=== PATIENT | female | born 2000 | race African-American/Black ===

== ENCOUNTER 2020-12-11 12:08 | Emergency (ER) | payer OTHER ==
[2020-12-11] MEDS ORDERED: Sodium Chloride 0.9% 2.5 ML Syringe FLUSH PRN (12:28)
[2020-12-11] MEDS ORDERED: Sodium Chloride 0.9% 1,000 ML IV ONE (12:28)
[2020-12-11] MEDS ORDERED: Sodium Chloride 0.9% 10 ML Syringe FLUSH PRN (12:28)
--- NOTE | 2020-12-11 12:35 | EDM.PDOC ---
ED HPI GENERAL MEDICAL PROBLEM - General Chief Complaint: Chest Pain Stated Complaint: POSSIBLE HEART ISSUE, BUMP ON HEAD Time Seen by Provider: 12/11/20 12:12 - History of Present Illness INITIAL COMMENTS - FREE TEXT/NARRATIVE: 20yoF with minimal past hx presenting with chest pain, palpitations, left arm numbness and an uncomfortable bump on her head. Pt lost her baby in August 2020 and has been struggling with that. Pt also has a prior h/o depression. Pt's PCP started her on Wellbutrin 5 days ago. She started to develop chest pain and palpitations and saw that this was a potential side effect. She stopped taking the Wellbutrin after 4 days. She had a mild headache last night on the left side and woke up today with discomfort and paraesthesias down her left face and into her left arm. No weakness, no SOB, no abd pain or emesis. Pt is also currently on metronidazole for BV. Pt vapes but no other drugs or etOH. No LE pain or swelling. Sx w/out clear exacerbating or alleviating factors, radiation or other associated sx. chest Pain Score (Numeric/FACES): 6 - Related Data Allergies Allergy/AdvReac Type Severity Reaction Status Date / Time No Known Allergies Allergy Verified 12/11/20 13:26 Home Meds: Home Meds . [No Known Home Meds] 12/11/20 [History] ED ROS GENERAL - Review of Systems Review Of Systems: See Below Free Text/Narrative/Comment: General: No fever. Skin: No rash. Eyes: No vision problems. ENT: No sore throat. Neck: Per HPI Respiratory: No shortness of breath. Cardiac: Per HPI Gastrointestinal: No nausea, vomiting or abdominal pain. Urinary: No dysuria. Musculoskeletal: No myalgias/arthralgias. Neurologic: Per HPI ED EXAM, GENERAL - Physical Exam Exam: See Below Free Text/Narrative:: General Appearance: No acute distress, appears comfortable Skin: No rash HEENT: atraumatic, 7mm minimally tender nodule in the left anterior parietal scalp consistent with cutaneous cyst, no swelling, fluctuance or ecchymosis, sclera anicteric, mucous membranes moist Neck: Normal range of motion Chest and Lungs: Bilateral breath sounds, clear to auscultation Cardiovascular: Tachycardic rate at 120 on the monitor during my interview regular rhythm, no murmur Abdomen: Soft, non-tender Back: Normal Musculoskeletal: No edema, left trapezius with tenderness and palpable spasm Neurologic: Cranial nerves II through XI intact bilaterally 5 out of 5 strength bilateral upper and 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 Diminished sensation over the left lateral arm primarily down to the pinky. Psychiatric: Appropriate, cooperative #1 Interpretation EKG Date: 12/11/20 Time: 12:30 EKG Interpretation Comments: Normal sinus rhythm rate of 83 normal axis and intervals no acute ischemia normal EKG Course - Vital Signs Last Recorded V/S: Last Vital Signs Temp 96.2 F L 12/11/20 12:12 Pulse 85 12/11/20 13:21 Resp 16 12/11/20 13:21 BP 123/67 12/11/20 13:21 Pulse Ox 95 12/11/20 13:21 - Orders/Labs/Meds Orders: Active Orders 24 hr Category Date Time Status EKG 12 Lead [EKG Documentation Completion] [RC] STAT Care 12/11/20 12:32 Active Sodium Chloride 0.9% [Saline Flush] Med 12/11/20 12:28 Active 10 ml FLUSH ASDIRECTED PRN Sodium Chloride 0.9% [Saline Flush] Med 12/11/20 12:28 Active 2.5 ml FLUSH ASDIRECTED PRN Saline Lock Insert [OM.PC] Stat Oth 12/11/20 12:28 Ordered Medication Orders Sodium Chloride (Sodium Chloride 0.9% 10 Ml Syringe) 10 ml FLUSH ASDIRECTED PRN PRN Reason: Keep Vein Open Last Admin: 12/11/20 12:49 Dose: 10 ml Documented by: TAM Sodium Chloride (Sodium Chloride 0.9% 2.5 Ml Syringe) 2.5 ml FLUSH ASDIRECTED PRN PRN Reason: Keep Vein Open Last Admin: 12/11/20 12:49 Dose: 2.5 ml Documented by: TAM Labs: Laboratory Tests 12/11/20 12/11/20 12/11/20 Range/Units 12:25 12:25 12:25 WBC 11.15 H (4.0-11.0) K/uL RBC 4.89 (4.30-5.90) M/uL Hgb 11.5 L (12.0-16.0) g/dL Hct 37.5 (36.0-46.0) % MCV 76.7 L (80.0-98.0) fL MCH 23.5 L (27.0-32.0) pg MCHC 30.7 L (31.0-37.0) g/dL RDW Std Deviation 47.8 (28.0-62.0) fl RDW Coeff of Amy 17 H (11.0-15.0) % Plt Count 310 (150-400) K/uL MPV 11.00 (7.40-12.00) fL Neut % (Auto) 53.9 (48.0-80.0) % Lymph % (Auto) 37.7 (16.0-40.0) % [place] % (Auto) 6.5 (0.0-15.0) % Eos % (Auto) 1.6 (0.0-7.0) % Baso % (Auto) 0.3 (0.0-1.5) % Neut # (Auto) 6.0 H (1.4-5.7) K/uL Lymph # (Auto) 4.2 H (0.6-2.4) K/uL [place] # (Auto) 0.7 (0.0-0.8) K/uL Eos # (Auto) 0.2 (0.0-0.7) K/uL Baso # (Auto) 0.0 (0.0-0.1) K/uL Nucleated RBC % 0.0 /100WBC Nucleated RBCs # 0 K/uL D-Dimer, Quantitative < 0.19 (0.0-0.50) mg/L FEU Sodium 140 (136-145) mmol/L Potassium 4.1 (3.5-5.1) mmol/L Chloride 103 (98-107) mmol/L Carbon Dioxide 27.3 (21.0-32.0) mmol/L BUN 7 (7.0-18.0) mg/dL Creatinine 0.9 (0.6-1.0) mg/dL Est Cr Clr Drug Dosing TNP Estimated GFR (MDRD) > 60.0 ml/min Glucose 106 (74-106) mg/dL Calcium 8.9 (8.5-10.1) mg/dL Total Bilirubin 0.3 (0.2-1.0) mg/dL AST 13 L (15-37) IU/L ALT 15 (14-63) IU/L Alkaline Phosphatase 81 (46-116) U/L Troponin I < 0.050 (0.000-0.056) ng/mL Total Protein 8.1 (6.4-8.2) g/dL Albumin 4.0 (3.4-5.0) g/dL Globulin 4.1 H (2.6-4.0) g/dL Albumin/Globulin Ratio 1.0 (0.9-1.6) HCG, Qual (NEG) 12/11/20 Range/Units 12:25 WBC (4.0-11.0) K/uL RBC (4.30-5.90) M/uL Hgb (12.0-16.0) g/dL Hct (36.0-46.0) % MCV (80.0-98.0) fL MCH (27.0-32.0) pg MCHC (31.0-37.0) g/dL RDW Std Deviation (28.0-62.0) fl RDW Coeff of Amy (11.0-15.0) % Plt Count (150-400) K/uL MPV (7.40-12.00) fL Neut % (Auto) (48.0-80.0) % Lymph % (Auto) (16.0-40.0) % [place] % (Auto) (0.0-15.0) % Eos % (Auto) (0.0-7.0) % Baso % (Auto) (0.0-1.5) % Neut # (Auto) (1.4-5.7) K/uL Lymph # (Auto) (0.6-2.4) K/uL [place] # (Auto) (0.0-0.8) K/uL Eos # (Auto) (0.0-0.7) K/uL Baso # (Auto) (0.0-0.1) K/uL Nucleated RBC % /100WBC Nucleated RBCs # K/uL D-Dimer, Quantitative (0.0-0.50) mg/L FEU Sodium (136-145) mmol/L Potassium (3.5-5.1) mmol/L Chloride (98-107) mmol/L Carbon Dioxide (21.0-32.0) mmol/L BUN (7.0-18.0) mg/dL Creatinine (0.6-1.0) mg/dL Est Cr Clr Drug Dosing Estimated GFR (MDRD) ml/min Glucose (74-106) mg/dL Calcium (8.5-10.1) mg/dL Total Bilirubin (0.2-1.0) mg/dL AST (15-37) IU/L ALT (14-63) IU/L Alkaline Phosphatase (46-116) U/L Troponin I (0.000-0.056) ng/mL Total Protein (6.4-8.2) g/dL Albumin (3.4-5.0) g/dL Globulin (2.6-4.0) g/dL Albumin/Globulin Ratio (0.9-1.6) HCG, Qual NEGATIVE (NEG) Meds: Medications Generic Name Dose Route Start Last Admin Trade Name Freq PRN Reason Stop Dose Admin Sodium Chloride 10 ml 12/11/20 12:28 12/11/20 12:49 Sodium Chloride 0.9% 10 Ml Syringe FLUSH 10 ml ASDIRECTED PRN Administration Keep Vein Open Sodium Chloride 2.5 ml 12/11/20 12:28 12/11/20 12:49 Sodium Chloride 0.9% 2.5 Ml Syringe FLUSH 2.5 ml ASDIRECTED PRN Administration Keep Vein Open Discontinued Medications Generic Name Dose Route Start Last Admin Trade Name Freq PRN Reason Stop Dose Admin Diazepam 5 mg 12/11/20 12:28 12/11/20 12:50 Diazepam 10 Mg/2 Ml Syringe IVPUSH 12/11/20 12:29 Not Given ONETIME ONE Sodium Chloride 1,000 mls @ 999 mls/hr 12/11/20 12:28 12/11/20 12:49 Normal Saline IV 12/11/20 13:28 999 mls/hr .Bolus ONE Administration Departure - Departure Time of Disposition: 13:46 Disposition: Home, Self-Care 01 Condition: Good Clinical Impression: Panic attack - Discharge Information *PRESCRIPTION DRUG MONITORING PROGRAM REVIEWED*: Not Applicable *COPY OF PRESCRIPTION DRUG MONITORING REPORT IN PATIENT [place]: Not Applicable Instructions: Panic Attack Forms: ED Department Discharge Additional Instructions: I do think your symptoms today likely represent an episode of a panic attack. However, as we discussed I do not believe that this necessarily means that you have panic disorder. It is more likely that your brain is still adjusting to the days that you are on Wellbutrin. I encourage you to do which you can to avoid stressful situations and try and take it easy for the next couple days. The effects of the Wellbutrin should completely wear off over the next couple days. I encourage you to continue to follow closely with your primary care doctor. The following information is given to patients seen in the emergency department who are being discharged to home. This information is to outline your options for follow-up care. We provide all patients seen in our emergency department with a follow-up referral. The need for follow-up, as well as the timing and circumstances, are variable depending upon the specifics of your emergency department visit. If you don't have a primary care physician on staff, we will provide you with a referral. We always advise you to contact your personal physician following an emergency department visit to inform them of the circumstance of the visit and for follow-up with them and/or the need for any referrals to a consulting spec ialist. The emergency department will also refer you to a specialist when appropriate. This referral assures that you have the opportunity for follow-up care with a specialist. All of these measure are taken in an effort to provide you with optimal care, which includes your follow-up. Under all circumstances we always encourage you to contact your private physician who remains a resource for coordinating your care. When calling for follow-up care, please make the office aware that this follow-up is from your recent emergency room visit. If for any reason you are refused follow-up, please contact the [facility] Emergency Department at and asked to speak to the emergency department charge nurse. Sepsis Event Note (ED) - Focused Exam Vital Signs: Vital Signs Temp Pulse Resp BP BP Pulse Ox 12/11/20 13:21 85 16 123/67 95 12/11/20 12:12 96.2 F L 112 H 17 136/71 98 - My Orders Last 24 Hours: My Active Orders 12/11/20 12:28 Sodium Chloride 0.9% [Saline Flush] 10 ml FLUSH ASDIRECTED PRN Sodium Chloride 0.9% [Saline Flush] 2.5 ml FLUSH ASDIRECTED PRN Saline Lock Insert [OM.PC] Stat 12/11/20 12:32 EKG 12 Lead [EKG Documentation Completion] [RC] STAT - Assessment/Plan Last 24 Hours: My Active Orders 12/11/20 12:28 Sodium Chloride 0.9% [Saline Flush] 10 ml FLUSH ASDIRECTED PRN Sodium Chloride 0.9% [Saline Flush] 2.5 ml FLUSH ASDIRECTED PRN Saline Lock Insert [OM.PC] Stat 12/11/20 12:32 EKG 12 Lead [EKG Documentation Completion] [RC] STAT Assessment:: 20-year-old female presenting with palpitations chest pain paresthesias. Certainly side effects of Wellbutrin or consideration anxiety certainly is a consideration. Possibility of stroke was considered but the patient is very low risk for this and quite young. Patient's numbness also seems to be confined to dermatome and is associated with palpable left trap spasm. PE considered but patient low risk for this given the tachycardia D-dimer will be sent. Chest x- ray as well EKG is without acute ischemia. Patient with a cutaneous cyst on the left upper scalp no signs of infection at this time. I do not see any evidence for acute intracranial process at this time no concern for subarachnoid hemorrhage nothing suggest intracranial mass. No indication for CT imaging at this time. Labs, Valium and will reassess. 1250: Pt refused the Valium stating "I just don't want it." 1345: On reassessment patient states that she is feeling much improved and her symptoms have essentially resolved. She now wonders if she was having a panic attack as she was having conversation with her when these symptoms started. We discussed that her symptoms in many ways are quite classic for a panic attack. However we also discussed that given the recent Wellbutrin I would not diagnose her with panic attacks or panic disorders at this time as it could still be her brain adjusting from the brief experience with Wellbutrin. I encourage her to continue follow-up closely with her primary care doctor.
--- NOTE | 2020-12-11 12:57 | CR ---
INDICATION: Chest pain. TECHNIQUE: Chest 1 view. COMPARISON: None FINDINGS: Cardiovascular and mediastinum: Heart size and vasculature are normal in caliber and appearance. Mediastinum is within normal limits. Lungs and pleural space: Lungs are clear. No sign of infiltrate or mass. No sign of pleural effusion. No pneumothorax. Bones and soft tissues: No significant findings. IMPRESSION: Unremarkable chest. Dictated by Jadiel Tolliver MD @ Dec 11 2020 12:54PM Signed by Dr. Jadiel Tolliver @ Dec 11 2020 12:54PM
[2020-12-11 12:58] LABS: BLOOD UREA NITROGEN,BUN 7 mg/dL (7.0-18.0); CARBON DIOXIDE,CO2 27.3 mmol/L (21.0-32.0); CHLORIDE,CL 103 mmol/L (98-107); GLUCOSE RANDOM 106 mg/dL (74-106); POTASSIUM,K 4.1 mmol/L (3.5-5.1); SODIUM,NA 140 mmol/L (136-145)
== END 2020-12-11 13:57 | disposition home or self-care (01) ==
LOC: MERGE 12:08 → EDBD 12:08 → MW.ED 12:08
DX: F41.0 Panic disorder [episodic paroxysmal anxiety] (principal); R22.0 Localized swelling, mass and lump, head
CPT/HCPCS: 36415; 71045; 80053; 84484; 84703; 85025; 85379; 93005; 99285; J7030; 93010; 99283

== ENCOUNTER 2023-06-08 15:22 | Emergency (ER) | payer MEDICAID ==
[2023-06-08 17:07] LABS: BASOPHILS PERCENT AUTO 0.2 % (0.0-1.5); EOSINOPHILS ABSOLUTE AUTO 0.3 K/uL (0.0-0.7); EOSINOPHILS PERCENT AUTO 2.1 % (0.0-7.0); HEMATOCRIT 40.4 % (36.0-46.0); HEMOGLOBIN 12.9 g/dL (12.0-16.0); MEAN CORPUSCULAR HEMOGLOBIN 26.3 pg (27.0-32.0); MEAN CORPUSCULAR HGB CONC 31.9 g/dL (31.0-37.0); MEAN CORPUSCULAR VOLUME 82.3 fL (80.0-98.0); MONOCYTES ABSOLUTE AUTO 0.8 K/uL (0.0-0.8); MONOCYTES PERCENT AUTO 6.7 % (0.0-15.0); NEUTROPHILS ABSOLUTE AUTO 7.9 K/uL (1.4-5.7); NRBC ABSOLUTE 0 K/uL; PLATELET COUNT,PLT 197 K/uL (150-400); RED BLOOD CELL COUNT 4.91 M/uL (4.30-5.90)
[2023-06-08 17:31] LABS: A/G RATIO 0.7 (0.9-1.6); ALANINE AMINOTRANSFERASE,ALT 13 IU/L (14-63); ALKALINE PHOSPHATASE 80 U/L (46-116); ASPARTATE AMNIOTRANSFERASE,AST 14 IU/L (15-37); BILIRUBIN TOTAL 0.4 mg/dL (0.2-1.0); BLOOD UREA NITROGEN,BUN 4 mg/dL (7.0-18.0); CALCIUM 8.6 mg/dL (8.5-10.1); CHLORIDE,CL 102 mmol/L (98-107); CREATININE 0.6 mg/dL (0.6-1.0); EST CRCL DRUG DOSING (CG) 168.28 mL/min; GLUCOSE RANDOM 76 mg/dL (74-106); PROTEIN TOTAL,TP 7.4 g/dL (6.4-8.2); SODIUM,NA 134 mmol/L (136-145); TSH ULTRASENSITIVE 0.95 uIU/mL (0.36-3.74)
[2023-06-08 17:32] LABS: ESTIMATED GFR 129 mL/min (>60)
== END 2023-06-08 18:21 | disposition home or self-care (01) ==
LOC: MW.ED 15:22
DX: R00.2 Palpitations (principal); Z20.822 Contact with and (suspected) exposure to COVID-19
CPT/HCPCS: 36415; 80053; 84443; 84484; 85025; 93005; 99285; U0002

== ENCOUNTER 2023-07-12 22:39 | Emergency (ER) | payer MEDICAID ==
[2023-07-12] MEDS ORDERED: Benzocaine 20% Topical Spray UD MUCMEM ONE (23:37)
[2023-07-12] MEDS ORDERED: Lidocaine 2% Viscous Solution 15 ML UD PO ONE (23:38)
== END 2023-07-13 00:24 | disposition home or self-care (01) ==
LOC: MW.ED 22:39
DX: K08.89 Other specified disorders of teeth and supporting structures (principal)
CPT/HCPCS: 99283; A9270

== ENCOUNTER 2023-08-25 05:00 | Inpatient (IN) | payer MEDICAID ==
[2023-08-25] MEDS ORDERED: Sodium Chloride 0.9% 2.5 ML Syringe FLUSH PRN (05:30)
[2023-08-25] MEDS ORDERED: Misoprostol 200 MCG Tab PO PRN (05:30)
[2023-08-25] MEDS ORDERED: Lidocaine 1% 50 ML MDV INJECT PRN (05:30)
[2023-08-25] MEDS ORDERED: Carboprost Tromethamine 250 MCG/1 mL Vial IM PRN (05:30)
[2023-08-25] MEDS ORDERED: Sodium Chloride 0.9% 10 ML Syringe FLUSH PRN (05:30)
[2023-08-25] MEDS ORDERED: Water For Irrigation,Sterile 1,000 ML Container IRR PRN (05:30)
[2023-08-25] MEDS ORDERED: Oxytocin/0.9 % Sodium Chloride 30 UNIT/500 ML BAG IV SCH ×2 (05:30→23:45)
[2023-08-25] MEDS ORDERED: Methylergonovine 0.2 MG/1 ML Amp IM PRN (05:30)
[2023-08-25] MEDS ORDERED: Sodium Chloride 0.9% 20 ML SDV IV PRN (05:30)
[2023-08-25] MEDS ORDERED: Tranexamic Acid IN NACL,ISO-OS 1,000 MG in Premix Bag 1 BAG IV PRN ×2 (05:30)
[2023-08-25 05:58] LABS: HEMATOCRIT 37.6 % (37.0-47.0); HEMOGLOBIN 12.5 g/dL (12.0-16.0); MEAN CORPUSCULAR HEMOGLOBIN 26.4 pg (28.0-32.0); MEAN CORPUSCULAR HGB CONC 33.2 g/dL (32.0-36.0); MEAN CORPUSCULAR VOLUME 79.3 fL (83.0-99.0); MEAN PLATELET VOLUME 12.1 fL (9.4-12.3); PLATELET COUNT,PLT 153 K/uL (150-400); RED BLOOD CELL COUNT 4.74 M/uL (4.10-5.30); WHITE BLOOD CELL COUNT,WBC 12.72 K/uL (3.9-11.3)
[2023-08-25 06:29] LABS: AMPHETAMINES SCREEN, URINE NEGATIVE (CUTOFF=500); BARBITURATE SCREEN,URINE NEGATIVE (CUTOFF=200); BENZODIAZEPINES SCREEN,URINE NEGATIVE (CUTOFF=150); BUPRENORPHINE SCREEN,URINE NEGATIVE (CUTOFF=10); METHADONE SCREEN, URINE NEGATIVE (CUTOFF=200); METHAMPHETAMINES SCREEN, URINE NEGATIVE (CUTOFF=500); OXYCODONE SCREEN,URINE NEGATIVE (CUT0FF=100); PCP SCREEN,URINE NEGATIVE (CUTOFF=25); THC SCREEN,URINE 20 NG/ML NEGATIVE (CUTOFF=50)
[2023-08-25] MEDS: Misoprostol 25 MCG (1/4 of 100 MCG) Tab VAG PRN ×2 (11:49→15:59)
[2023-08-25] MEDS ORDERED: Terbutaline 1 MG/ML SDV SUBCUT PRN (12:00)
[2023-08-25] MEDS: Lactated Ringers 1,000 ML IV SCH (23:05)
[2023-08-26] MEDS: Lactated Ringers 1,000 ML IV SCH (01:25)
[2023-08-26] MEDS ORDERED: Ketorolac 30 MG/ML SDV IVPUSH ONE (03:22)
[2023-08-26] MEDS ORDERED: Ketorolac 30 MG/ML SDV ONE (03:24)
[2023-08-26] MEDS ORDERED: Nalbuphine 10 MG/0.5 ML Syringe ONE (03:48)
[2023-08-26] MEDS ORDERED: Nalbuphine 10 MG/0.5 ML Syringe IVPUSH ONE (03:50)
[2023-08-26] MEDS ORDERED: Tranexamic Acid IN NACL,ISO-OS 1,000 MG in Premix Bag 1 BAG IV PRN ×2 (04:17)
[2023-08-26] MEDS ORDERED: Bisacodyl 10 MG Supp RECTAL PRN (04:17)
[2023-08-26] MEDS ORDERED: Methylergonovine 0.2 MG/1 ML Amp IM PRN (04:17)
[2023-08-26] MEDS ORDERED: Witch Hazel Medicated Pads 40/Jar TOP PRN (04:17)
[2023-08-26] MEDS ORDERED: Docusate Sodium 100 MG Cap PO PRN (04:17)
[2023-08-26] MEDS ORDERED: Benzocaine/Menthol 20%-0.5% Spray 78 GM Cannister TOP PRN (04:17)
[2023-08-26] MEDS ORDERED: Lanolin 100% Cream 7 GM Tube TOP PRN (04:17)
[2023-08-26 04:24] LABS: PH,UMBILICAL ARTERIAL 7.287 (7.18-7.38); PH,UMBILICAL VENOUS 7.363 (7.25-7.45)
[2023-08-26] MEDS: Acetaminophen 500 MG Tab PO PRN (09:34)
[2023-08-26] MEDS: Ibuprofen 800 MG Tab PO PRN (20:29)
[2023-08-27] MEDS: Acetaminophen 500 MG Tab PO PRN (00:04)
[2023-08-27] MEDS: Ibuprofen 800 MG Tab PO PRN ×2 (02:44→12:30)
[2023-08-27 06:07] LABS: HEMATOCRIT 27.4 % (37.0-47.0); HEMOGLOBIN 8.9 g/dL (12.0-16.0)
== END 2023-08-27 14:45 | disposition home or self-care (01) | DRG 807 ==
LOC: MW.OBCHECK 05:00 → MW.OB 05:01 → MW.OBCHECK 05:30 → OBSVTOIN 08-26 02:56 → MW.OB 08-26 08:48
PROVIDERS: ADMIT Obstetrics & Gynecology; ATTEND Obstetrics & Gynecology Obstetrics
PROC: 10E0XZZ Delivery of Products of Conception, External Approach (ICD-10-PCS; principal; 2023-08-26)
PROC: 10907ZC Drainage of Amniotic Fluid, Therapeutic from Products of Conception, Via Natural or Artificial Opening (ICD-10-PCS; 2023-08-26)
PROC: 3E0P7VZ Introduction of Hormone into Female Reproductive, Via Natural or Artificial Opening (ICD-10-PCS; 2023-08-26)
PROC: 3E033VJ Introduction of Other Hormone into Peripheral Vein, Percutaneous Approach (ICD-10-PCS; 2023-08-26)
DX: O13.4 Gestational [pregnancy-induced] hypertension without significant proteinuria, complicating childbirth (principal); Z37.0 Single live birth; Z3A.39 39 weeks gestation of pregnancy; O76 Abnormality in fetal heart rate and rhythm complicating labor and delivery
CPT/HCPCS: 36415; 59409; 80305-QW; 82803; 85014; 85018; 85027; 86592; 86850; 86900; 86901; A9270-GY; J1885; J2300; J2590; J7120